=== PATIENT | male | born 1960 | race Caucasian/White ===

== ENCOUNTER 2021-11-09 07:52 | Day surgery (SDC) | payer OTHER ==
[2021-11-09] VITALS (116 sets, daily range): BP systolic 81–143; BP diastolic 49–90
[~2021-11-09] VITALS: Ht 177.8 cm; Wt 76.4 kg
--- NOTE | 2021-11-09 07:37 | NUR ---
PT ARRIVED TO ROOM 288. A&O X4, AMBULATORY WITH STEADY GAIT. PT ACCOMPAINED BY FAMILY. DISCUSSED POC AND SAFETY PRECAUTIONS. CONSENTS OBTAINED. ID BAND APPLIED. PT VERBALIZED UNDERSTANDING. VS OBTAINED. ORIENTED TO ROOM AND CALL LIGHT SYSTEM. CALL LIGHT WITHIN REACH. PT CHANGED INTO GOWN, COMPRESSION STOCKINGS, AND NON SKID SOCKS.
--- NOTE | 2021-11-09 07:47 | NUR ---
VS CALLED TO DR. ELLIS AT THIS TIME. NEW ORDERS RECEIVED WILL MEDICATE WHEN MEDICATIONS PROFILED AND CONTINUE TO MONITOR.
[2021-11-09 07:56] LABS: HEMATOCRIT 49.6 % (39.0-50.0); HEMOGLOBIN 16.6 g/dl (14.0-18.0); IMMATURE GRANULOCYTES 0.4 % (0.0-5.0); MEAN CELL VOLUME 89.9 fL CALC (80.0-100.0); MEAN CORPUSCULAR HGB 30.1 pG CALC (26.0-32.0); MEAN CORPUSCULAR HGB CONC 33.5 g/dL CAL (32.0-36.0); NEUT# 4.57 thou/uL (1.82-7.42); RED BLOOD COUNT 5.52 mill/uL (4.70-6.10); RED CELL DISTRI WIDTH 12.5 % (11.5-15.5)
[2021-11-09 08:05] LABS: ALBUMIN 4.3 g/dL (3.2-5.0); ALKALINE PHOSPHATASE 51 u/l (38-126); ANION GAP 8 (6-22 (CALC)); BILIRUBIN, TOTAL 0.8 mg/dL (0.0-1.4); BUN 12 mg/dL (8-23); BUN/CREATININE RATIO 11 (12-20 (CALC)); CARBON DIOXIDE 33 mmol/l (22-30); CHLORIDE 100 mmol/l (95-108); CREATININE 1.1 mg/dL (0.7-1.3); GFR FOR AFR.AMER. > 60 ML/MIN (>=60 (CALC)); GFR OTHER RACES > 60 ML/MIN (>=60 (CALC)); POTASSIUM 3.8 mmol/l (3.5-5.1); SGOT/AST 29 u/l (19-48); SODIUM 137 mmol/l (137-146)
--- NOTE | 2021-11-09 09:32 | NUR ---
REPEAT VS CALLED TO DR. ELLIS AT THIS TIME. NO NEW ORDERS RECEIVED. WILL CONTINUE TO MONITOR.
[2021-11-09] MEDS ORDERED: HYDROMORPHONE1 MG/M1 IV (10:03)
[2021-11-09] MEDS ORDERED: TESTOST CYP200 MG/ML IM (10:04)
[2021-11-09] MEDS ORDERED: MEDDOSEPAK PO (10:05)
[2021-11-09] MEDS ORDERED: DOXAZOSIN1 MG PO (10:06)
--- NOTE | 2021-11-09 12:47 | NUR ---
Induction Note Patient to [facility] procedure room. Time out performed at 1247 . Patient placed on monitors, Ximena hugger, bilateral wrist restraints applied for ET tube protection. Versed 5mg given IV push at 1248 Tourniquet applied to right arm Lidocaine 100mg given at 1249 IV push followed by Rocoronium 10mg at 1250 IV push and held for 90 seconds. Propofol bolus of 120 mg given at 1252 IV push. Succinylcholine 80mg given IV push at 1253. Smooth intubation with 7.5 ETT. Positive CO2. Positive Auscultation for air exchange. Patient placed on ventilator for spontaneous ventilation. Placed on Propofol IV drip at 1254. OG inserted. Positive air on auscultation. Positive gastric content. Stomach washed at this time.
--- NOTE | 2021-11-09 14:48 | NUR ---
OG close note Stomach washed at this time. Naltrexone 50 mg with Clonidine 0.2 mg via OG tube. OG will be clamped for 45 minutes.
[2021-11-09] MEDS ORDERED: CLONIDINE0.1 MG PO (15:30)
[2021-11-09] MEDS ORDERED: NALTREXONE50 MG PO (15:30)
[2021-11-09] MEDS ORDERED: KLONOPIN1 MG PO (15:30)
--- NOTE | 2021-11-09 15:33 | NUR ---
OG open note OG open at this time. Gastric content draining into drainage bag. OG to drain for 45 minutes. Propofol will be titrated down based on patient.
--- NOTE | 2021-11-09 16:43 | NUR ---
OG close note Stomach washed at this time. Naltrexone 25 mg with Clonidine 0.2 mg via OG tube. OG will be clamped for 45 minutes.
--- NOTE | 2021-11-09 17:38 | NUR ---
Extubation note Closing medications given Benadryl 50mg IV push, Decadron 10mg IV push,Magnesium 4 grams IV, Zofran 8mg IV push, Octreotide 100mcg SC. Stomach washed out prior to extubation. Suctioned gastric content. OG removed. Patient extubated. Propofol Discontinued. Wrist restraints removed. Ximena hugger Removed. See ANR Moderate sedate recovery record for further notes and assessment.
--- NOTE | 2021-11-09 18:06 | NUR ---
PATIENT ARRIVED TO ROOM 288 VIA BED.VSS. RESPIRATIONS UNLABORED ON 2L NC. NO S/S OF DISTRESS. SAFTEY PRECAUTIONS IN PLACE WITH CALL LIGHT IN REACH.
--- NOTE | 2021-11-09 19:30 | NUR ---
PT RESTING IN BED, VERY DROWSY, ALERT TO SPEECH. PT ALERT TO SELF, NO SIGNS OF DISTRESS NOTED, RESP EVEN AND UNLABORED. PT ON 02 2L NC, SATS MAINTAINING AT 98%. SKIN INTACT. VITALS OBTAINED. ASSESSMENT COMPLETED, PT INCONTINENT OF URINE, MARCO A CARE PROVIDED. IV INFUSING LR @ 100CC/HR TO RFA, PT TOLERATING WELL. BED ALARM FOR SAFETY, CALL LIGHT IN REACH,CONTINUE TO MONITOR.
--- NOTE | 2021-11-09 22:06 | NUR ---
PT REPOSITIONED IN BED, NO SIGNS OF DISTRESS NOTED, RESP EVEN AND UNLABORED. CALL LIGHT IN REACH,CONTINUE TO MONITOR.
--- NOTE | 2021-11-09 22:30 | NUR ---
PT RESTING IN BED, INCONTINENT OF URINE, MARCO A CARE COMPLETED, REPOSITIONED IN BED, PT C/O PAIN MEDICATED PER JUL. ATTEMPTED TO GIVE PO MEDS, PT TOO DROWSY UNABLE TAKE MEDS. CALL LIGHT IN REACH, BED ALARM FOR SAFETY, CONTINUE TO MONITOR.
--- NOTE | 2021-11-10 | NUR ---
PT RESTING IN BED WITH EYES CLOSED, NO SIGNS OF DISTRESS NOTED, RESP EVEN AND UNLABORED. CALL LIGHT IN REACH, BED ALARM FOR SAFETY, CONTINUE TO MONITOR.
[2021-11-10 01:05] VITALS: BP 135/75
[2021-11-10 03:41] VITALS: BP 114/63
--- NOTE | 2021-11-10 04:10 | NUR ---
LAB AT BEDSIDE OBTAINING AM LABS, PT MEDICATED PER MAR, NO SIGNS OF DISTRESS NOTED, RESP EVEN AND UNLABORED. CALL LIGHT IN REACH,CONTINUE TO MONITOR.
[2021-11-10 05:00] LABS: HEMATOCRIT 48.3 % (39.0-50.0); HEMOGLOBIN 16.5 g/dl (14.0-18.0); IMMATURE GRANULOCYTES 0.3 % (0.0-5.0); MEAN CORPUSCULAR HGB 29.7 pG CALC (26.0-32.0); MEAN CORPUSCULAR HGB CONC 34.2 g/dL CAL (32.0-36.0); NEUT# 9.61 thou/uL (1.82-7.42); RED BLOOD COUNT 5.55 mill/uL (4.70-6.10); RED CELL DISTRI WIDTH 12.2 % (11.5-15.5)
[2021-11-10 05:25] LABS: ALBUMIN 3.9 g/dL (3.2-5.0); ALKALINE PHOSPHATASE 49 u/l (38-126); ANION GAP 14 (6-22 (CALC)); BILIRUBIN, TOTAL 0.8 mg/dL (0.0-1.4); BUN 13 mg/dL (8-23); BUN/CREATININE RATIO 12 (12-20 (CALC)); CHLORIDE 102 mmol/l (95-108); CREATININE 1.1 mg/dL (0.7-1.3); GFR FOR AFR.AMER. > 60 ML/MIN (>=60 (CALC)); GFR OTHER RACES > 60 ML/MIN (>=60 (CALC)); MAGNESIUM 2.3 mg/dL (1.6-2.3); POTASSIUM 3.7 mmol/l (3.5-5.1); SGOT/AST 21 u/l (19-48); SODIUM 135 mmol/l (137-146); TOTAL PROTEIN 6.1 g/dL (6.3-8.2)
[2021-11-10 05:30] LABS: CARBON DIOXIDE 23 mmol/l (22-30)
[2021-11-10 07:43] VITALS: BP 108/64
--- NOTE | 2021-11-10 07:51 | NUR ---
RECIEVED REPORT FROM [facility]. PT SLEEPING IN SEMI FOWLERS POSITION.AWAKENS TO SPEECH BUT STILL VERY DROWSY. RESPIRATIONS EVEN AND UNLABORED ON ROOM AIR. #20G RFA AND #20G LH FLUSHED, SITES PATENT. SKIN INTACT. NO S/S OF DISTRESS.ATTEMPTED TO ADMINISTER MORNING MEDS, PT UNABLE TO DRINK AT THIS TIME. MEDS HELD. ALL SAFTEY PRECAUTIONS ARE IN PLACE WITH CALL LIGHT IN REACH. BED ALARM ACTIVE.
--- NOTE | 2021-11-10 11:59 | NUR ---
PT ASSISTED WITH SHOWER AND GETTING DRESSED. PT APPEARS MORE ALERT AND STEADY GAIT. PT UP WALKING AROUND ROOM. PT DENIES OF ANY DISTRESS. ALL SAFTEY PRECAUTIONS ARE IN PLACE WITH CALL LIGHT IN REACH
[2021-11-10 12:10] VITALS: BP 102/61
--- NOTE | 2021-11-10 13:01 | NUR ---
PT EDUCATED ON DC INSTRUCTIONS. VERBLAIZED UNDERSTANDING. IV REMOVED WITH CATH IN PLACE
--- NOTE | 2021-11-10 13:48 | NUR ---
Discharge instructions given. Patient verbalizes understanding of same. Discharged in stable condition via Wheelchair to Home with staff. All belongings sent with pt.
== END 2021-11-10 13:48 | disposition home or self-care (01) | DRG 897 ==
LOC: ANR 07:52 → MS2 07:56 → ANR 16:28
PROVIDERS: ATTEND Anesthesiology
DX: F11.20 Opioid dependence, uncomplicated (principal)